=== PATIENT | female | born 1980 | race Caucasian/White ===

== ENCOUNTER 2016-11-22 09:31 | Emergency (ER) | payer OTHER ==
[2016-11-22 09:53] VITALS: BP 104/57
--- NOTE | 2016-11-22 10:49 | UC ---
Eye Complaint HPI - HPI Summary HPI Summary: 36 y/o female presents to the urgent care c/o Left eye lid with redness, and swelling since last Tuesday11/20/2016 . Pt reports her pain is 4/10 at touch. Pt wears contact lenses, but has removed them since symptoms started. Pt denies fever, ANDERSON, visual disturbances, SOB, chest pain, N/V/D. Pt has not other complains. - History of Current Complaint Chief Complaint: UCEye Stated Complaint: EYE COMPLAINT Time Seen by Provider: 11/22/16 10:38 Hx Obtained From: Patient Hx Last Menstrual Period: 11/07/16 ?: No Onset/Duration: Gradual Onset, Lasting Days, Still Present Timing: Constant Severity Initially: Mild Severity Currently: Moderate Pain Intensity: 4 Pain Scale Used: 0-10 Numeric Location of Injury: Eye Lid (upper) - lateral side of the left upper eyelid. Character: Sharp - at touch Aggravating Factor(s): Blinking Alleviating Factor(s): Nothing Associated Signs And Symptoms: Positive: Swelling. Negative: Photophobia, Drainage (Clear), Drainage (Purulent), Vision Impairment Bilateral, Fever - Allergies/Home Medications Allergies/Adverse Reactions: Allergies Allergy/AdvReac Type Severity Reaction Status Date / Time No Known Allergies Allergy Verified 11/22/16 09:53 PMH/Surg Hx/FS Hx/Imm Hx Previously Healthy: Yes - Surgical History Surgical History: None - Family History Known Family History: Positive: None - denies family history of cad, htn., Cardiac Disease, Hypertension - Social History Occupation: Employed Full-time Lives: With Family Alcohol Use: Weekly Substance Use Type: None Smoking Status (MU): Never Smoked Tobacco Review of Systems Constitutional: Negative Skin: Negative Eyes: Other - Swelling and redness of the LF upper eyelid ENT: Negative Respiratory: Negative Cardiovascular: Negative Gastrointestinal: Negative Genitourinary: Negative Motor: Negative Neurovascular: Negative Musculoskeletal: Negative Neurological: Negative Psychological: Negative All Other Systems Reviewed And Are Negative: Yes Physical Exam Triage Information Reviewed: Yes Appearance: Well-Appearing, No Pain Distress, Well-Nourished, Thin Vital Signs: Initial Vital Signs Temp 97.8 F 11/22/16 09:49 Pulse 86 11/22/16 09:49 Resp 16 11/22/16 09:49 BP 104/57 11/22/16 09:49 Pulse Ox 98 11/22/16 09:49 Vital Signs Reviewed: Yes Eye Exam: Normal Eyes: Positive: Conjunctiva Clear - PERRLA, EOMI, Fundi grossly normal, lateral side of the left upper eyelid with a small pustule at the eyelid margin , tender to palpation, redness and swelling at the corner of the upper eyelid. ENT Exam: Normal ENT: Positive: Normal ENT inspection, Hearing grossly normal, Pharynx normal, TMs normal Dental Exam: Normal Neck exam: Normal Neck: Positive: Supple, Nontender, No Lymphadenopathy Respiratory Exam: Normal Cardiovascular Exam: Normal Cardiovascular: Positive: RRR, No Murmur, Pulses Normal Abdominal Exam: Normal Abdomen Description: Positive: Nontender, No Organomegaly, Soft Eye Complaint Course/Dx - Course Course Of Treatment: 36 y/o female presents to the urgent care c/o Left eye lid with redness, and swelling since last Tuesday11/20/2016 . Pt reports her pain is 4/10 at touch. Pt wears contact lenses, but has removed them since symptoms started. Pt denies fever, ANDERSON, visual disturbances, SOB, chest pain, N/V/D. HX obtained. PE abnormal findings: EYE: PERRLA, EOMI, Fundi grossly normal, lateral side of the left upper eyelid with a small pustule at the eyelid margin , tender to palpation, redness and swelling at the corner of the upper eyelid. DX Hordelolum. Pt Rx Bacitracin opthalmic ointment. and to apply warm compresses an gentle massage to the affected area. If symptoms do not resolve to return to the clinic or f/u witn PCP for further management. Pt understood and agreed. - Differential Dx/Diagnosis Differential Diagnosis/HQI/PQRI: Conjunctivitis, Keratitis, Periorbital Cellulitis, Other - Hordeolum, chalazion Provider Diagnoses: 1- Left eye hordeolum Discharge - Discharge Plan Condition: Stable Disposition: HOME Prescriptions: Bacitracin OPHTH.OINT* 1 applic .SEE ORDER Q4HR #1 oint Patient Education Materials: Sylvester (ED) Referrals: Catia Elise MD [Primary Care Provider] - If Needed Additional Instructions: Please apply ophthalmic antibiotics as instructed. Pleas apply warm compresses with gentle pressure in the affected eyelid about 4 to 5 times per day for 10- 15min and massage the area.. If symptoms do not resolve or improve after applying antibiotic please return to the clinic or f/u with your PCP.
== END 2016-11-22 11:00 | disposition home or self-care (01) ==
LOC: UCEAST 09:31
DX: H00.016 Hordeolum externum left eye, unspecified eyelid (principal)
CPT/HCPCS: 99212; G0463